=== PATIENT | female | born 1995 | race Caucasian/White ===

== ENCOUNTER 2019-03-17 06:16 | Inpatient (IN) | payer OTHER ==
[~2019-03-17] VITALS: Ht 147.3 cm; Wt 63.6 kg
[2019-03-17] VITALS (15 sets, daily range): BP systolic 110–173; BP diastolic 64–95; PULSE 65–98; TEMP 97.8–99.3
[2019-03-17 06:45] LABS: BASO % 0.3 % (0.0-2.0); EOS # 0.2 (0.0-0.7); GRAN # 7.9 (1.4-6.5); HEMATOCRIT 38.1 % (37.0-47.0); HEMOGLOBIN 13.2 g/dl (12.5-16.0); LYMPH # 1.5 (1.2-3.4); MEAN CELL VOLUME 86 fl (80.0-100.0); MEAN CORPUSCULAR HEMOGLOBIN 30 pg (27.0-31.0); MEAN CORPUSCULAR HGB CONC 35 g/dl (33.0-37.0); MEAN PLATELET VOLUME 11.4 fl (7.4-10.4); MONO # 0.5 (0.1-0.6); MONO % 4.9 % (1.7-9.3); PLATELET COUNT 176 K/mm3 (130-400); RED BLOOD COUNT 4.42 M/mm3 (4.10-5.30); REDCELL DISTRIBUTION WIDTH-CV 13.2 % (11.5-14.5)
--- NOTE | 2019-03-17 07:51 | NUR ---
0689 PATIENT HERE FOR LABOR, PATIENT DOES NOT SPEAK [place]HA[place]. CALLED HOSPITAL VISUAL DEVELOPER LINE. PATIENT STATES STARTED HAVING CONTRACTIONS AT 2 THIS MORNING AND IS FEELING NEED TO PUSH. SVE /0 DR SEARS CALLED AT THIS TIME TO COME FOR DELIVERY. ASSESSMENT COMPLETED. IV STARTED IN LEFT WRIST, LR BOLUS AND PEN G 5MU HUNG AT THIS TIME. ALL CONSENTS SIGNED WITH VISUAL DEVELOPER ONLINE.
--- NOTE | 2019-03-17 07:56 | NUR ---
0700 DR SEARS AT BEDSIDE. SVE ANTERIOR LIP NOTED. ENCOURAGED PATIENT TO BREATH THROUGH EACH CONTRACTION. [address] SEARS AT BEDSIDE. PATIENT PUSHES. 0711 PATIENT PUSHES DELIVERS BABY GIRL BY DR SEARS. NO REPAIRS NEEDED PER DR SEARS. 0715 PLACENTA DELIVERED AND PITOCIN STARTED PITOCIN AT 333 PER PROTOCOL. FUNDUS FIRM SMALL BLEEDING NOTED.
[2019-03-18 03:50] VITALS: BP 126/66; PULSE 64; TEMP 97.9
[2019-03-18 07:57] LABS: ALBUMIN 3.3 gm/dL (3.5-5.0); BILIRUBIN,TOTAL 0.2 mg/dL (0.0-1.0); CALCIUM 8.7 mg/dL (8.4-10.2); CREATININE, serum 0.6 (0.52-1.25); POTASSIUM 3.8 mmol/L (3.4-5.0); TOTAL PROTEIN 6.6 gm/dL (6.4-8.2)
--- NOTE | 2019-03-18 09:28 | NUR ---
Initial visit; Patient is Greek speaking only. [employer] smiled and let her know with prayerful hands that she wishes her blessings. Patient smiled.
[2019-03-18 09:36] VITALS: BP 118/66; PULSE 64; TEMP 97.6
[2019-03-18] MEDS ORDERED: IBU600 MG PO (09:43)
[2019-03-18 15:45] VITALS: BP 133/64; PULSE 74; TEMP 98
[2019-03-18 19:30] VITALS: BP 119/67; PULSE 63; TEMP 98
[2019-03-19 07:20] VITALS: BP 103/61; PULSE 64; TEMP 98.2
--- NOTE | 2019-03-19 12:50 | NUR ---
1230- Clarifier line used: Discharge insturctions given and explained. Questions encourage but Pt and denies. placed in carseat, straps adjusted by this RN. Explained to parent, verbalize understanding. Pt escorted off unit by this RN. placed in back seat of car, rear-facing by Father.
== END 2019-03-19 12:50 | disposition home or self-care (01) | DRG 805 ==
LOC: LDR 06:16 → OB 06:16
PROVIDERS: ADMIT Obstetrics & Gynecology
PROC: 10E0XZZ Delivery of Products of Conception, External Approach (ICD-10-PCS; principal; 2019-03-17)
PROC: 3E033VJ Introduction of Other Hormone into Peripheral Vein, Percutaneous Approach (ICD-10-PCS; 2019-03-17)
DX: O26.62 Liver and biliary tract disorders in childbirth (principal); K83.1 Obstruction of bile duct; Z37.0 Single live birth; Z3A.38 38 weeks gestation of pregnancy
CPT/HCPCS: J2540; J2590; J7120

== ENCOUNTER 2020-05-01 14:14 | Emergency (ER) | payer SELFPAY ==
[~2020-05-01] VITALS: Ht 149.9 cm; Wt 64.5 kg
[~2020-05-01 14:14] MED LIST: IBU600 MG PO
[2020-05-01 14:21] VITALS: TEMP 98.6
[2020-05-01 15:25] VITALS: BP 102/63; PULSE 74
== END 2020-05-01 15:25 | disposition home or self-care (01) ==
LOC: COL.ER 14:14
DX: M25.562 Pain in left knee (principal); M25.532 Pain in left wrist

== ENCOUNTER → 2020-08-12 | Outpatient (CLI) | payer SELFPAY ==
[2020-08-12 12:43] LABS: BASO % 0.4 % (0.0-2.0); EOS # 0.4 (0.0-0.7); EOS % 5.3 % (0-4.0); GRAN # 5.2 (1.4-6.5); GRAN % 64.6 % (42.2-75.2); HEMATOCRIT 39.7 % (37.0-47.0); HEMOGLOBIN 13.6 g/dl (12.5-16.0); LYMPH # 1.8 (1.2-3.4); LYMPH % 22.8 % (20.0-51.0); MEAN CELL VOLUME 83 fl (80.0-100.0); MEAN CORPUSCULAR HEMOGLOBIN 29 pg (27.0-31.0); MEAN CORPUSCULAR HGB CONC 34 g/dl (33.0-37.0); MEAN PLATELET VOLUME 9.8 fl (7.4-10.4); MONO # 0.5 (0.1-0.6); MONO % 6.4 % (1.7-9.3); PLATELET COUNT 331 K/mm3 (130-400); RED BLOOD COUNT 4.77 M/mm3 (4.10-5.30); REDCELL DISTRIBUTION WIDTH-CV 12.5 % (11.5-14.5)
[2020-08-12 12:46] LABS: ALBUMIN 4.5 gm/dL (3.5-5.0); BILIRUBIN,TOTAL 0.5 mg/dL (0.0-1.0); CREATININE, serum 0.5 (0.52-1.25); POTASSIUM 3.7 mmol/L (3.4-5.0); TOTAL PROTEIN 8.3 gm/dL (6.4-8.2)
[2020-08-12 13:06] LABS: ERYTHROCYTE SEDIMENTATION RATE 6 mm/hr (0-20)
== END ==
LOC: COL.LAB 11:46
PROVIDERS: Physician Assistant
DX: M25.50 Pain in unspecified joint (principal); M25.40 Effusion, unspecified joint

== ENCOUNTER → 2021-03-29 | Outpatient (CLI) | payer SELFPAY | LOC: COL.LAB 14:20 | DX: M19.90 Unspecified osteoarthritis, unspecified site (principal) ==